=== PATIENT | male | born 1950 | race Caucasian/White ===

== ENCOUNTER 2019-01-01 09:47 | Outpatient (CLI) | payer OTHER ==
--- NOTE | 2019-01-01 10:27 | RAD ---
3 views of the left knee: 01/01/2019 COMPARISON: None HISTORY: Degenerative joint disease, knee arthritis with worsening pain FINDINGS: Moderate patellofemoral joint space narrowing with posterior patellar osteophyte formation noted. No significant knee joint effusion. Moderate/severe medial and lateral compartment narrowing with associated osteophyte formation. 2 calcific densities suggesting intra-articular loose bodies pr oject posterior to the distal left femur measuring up to 1.4 cm. No acute fracture or evidence of dislocation. IMPRESSION: Prominent multicompartment degenerative joint disease with findings suggesting intra-gunjan cular loose bodies.
== END 2019-01-01 09:48 | disposition home or self-care (01) ==
LOC: BICRAD 09:47
PROVIDERS: ATTEND Orthopaedic Surgery
DX: M17.12 Unilateral primary osteoarthritis, left knee (principal)

== ENCOUNTER 2023-06-01 21:25 | Emergency (ER) | payer MEDICARE, OTHER ==
[2023-06-01] MEDS ORDERED: Ipratropium/Albuterol 3 ML NEB ONE (21:58)
== END 2023-06-01 22:48 | disposition home or self-care (01) ==
LOC: ERS 21:25
DX: R18.8 Other ascites (principal); J18.9 Pneumonia, unspecified organism; E11.9 Type 2 diabetes mellitus without complications
CPT/HCPCS: 12001; 71045; 94640; J7620

== ENCOUNTER 2023-08-03 20:45 | Inpatient (IN) | payer MEDICARE, OTHER ==
[2023-08-03 21:11] LABS: #Eosinphils 0.2 thou/uL (0.0-0.7); #Monocytes 0.7 thou/uL (0.11-0.59); #Neutrophils 3.2 thou/uL (1.40-6.50); %Basophils 0.8 % (0.0-1.0); %Eosinophils 4.2 % (0.0-10.0); %Lymphocytes 15.2 % (21.0-51.0); %Monocytes 14.3 % (0.0-10.0); %Neutrophils 64.5 % (42.0-75.0); Hematocrit 30.5 % (42.0-52.0); Hemoglobin 10.8 g/dL (14.0-18.0); Mean Corpuscular HGB CONC 35.4 g/dL (32.0-36.0); Mean Corpuscular Hemoglobin 36.5 pg (27.0-31.0); Mean Platelet Volume 9.6 fL (7.4-10.4); Red Blood Cell (RBC) Count 2.96 mill/uL (4.70-6.10)
[2023-08-03 21:14] LABS: Platelet Count 54 10x3/uL (130-400)
[2023-08-03 22:01] LABS: Anisocytosis SLIGHT = 6-15 cells HPF (0-5); Burr Cells SLIGHT = 2-5 cells HPF (0-1); CellaVision Operator ID LAB.JMM; Macrocytosis SLIGHT = 6-15 cells HPF (0-5); Platelet Adequacy Comment Platelets Decreased; Polychromasia SLIGHT = 2-3 cells HPF (0-2)
[2023-08-03 22:30] LABS: ALT (SGPT) 21 U/L (8-55); AST (SGOT) 25 U/L (5-34); Alkaline Phosphatase 67 U/L (40-110); Anion Gap 15 mmol/L (10-20); BUN (Urea Nitrogen) 74 mg/dL (8.4-25.7); Bilirubin, Total 2.2 mg/dL (0.2-1.2); Calc. Creatinine Clearance 0 mL/min (70-130); Calcium 8.7 mg/dL (7.8-10.44); Carbon Dioxide 19 mmol/L (23-31); Chloride 99 mmol/L (98-107); Estimated GFR 25; Glucose 117 mg/dL (83-110); Potassium 5.4 mmol/L (3.5-5.1); Sodium 128 mmol/L (136-145)
[2023-08-03] MEDS ORDERED: Cefepime 1 GM VIAL ONE (23:04)
[2023-08-03] MEDS ORDERED: Sodium Chloride 0.9% 100 ML ONE (23:04)
[2023-08-03] MEDS ORDERED: Vancomycin (BATCH) 2 GM/500 ML BAG ONE (23:05)
[2023-08-04] MEDS ORDERED: Ondansetron PF 4 MG/2 ML Vial IVP PRN (00:55)
[2023-08-04] MEDS ORDERED: Acetaminophen 650 MG Suppository PR PRN (00:55)
[2023-08-04] MEDS ORDERED: Ondansetron ODT 4 MG TAB PO PRN (00:55)
[2023-08-04 01:11] LABS: Lactic Acid 2.5 mmol/L (0.5-2.2)
[2023-08-04] MEDS ORDERED: NOREPINEPHRINE 8 MG/250 ML-D5W 250 ML ONE (02:02)
[2023-08-04] MEDS: Midodrine HCl 5 MG TAB PO SCH ×2 (04:10→08:18)
[2023-08-04] MEDS: Albumin 25% 25 GM (100 mL) BOT IVPB SCH ×3 (05:25→14:14)
[2023-08-04 06:38] LABS: #Eosinphils 0.2 thou/uL (0.0-0.7); #Monocytes 0.7 thou/uL (0.11-0.59); #Neutrophils 3.7 thou/uL (1.40-6.50); %Basophils 0.6 % (0.0-1.0); %Eosinophils 3.7 % (0.0-10.0); %Lymphocytes 14.7 % (21.0-51.0); %Monocytes 12.2 % (0.0-10.0); %Neutrophils 67.9 % (42.0-75.0); Hematocrit 29.4 % (42.0-52.0); Hemoglobin 10.5 g/dL (14.0-18.0); Mean Corpuscular HGB CONC 35.7 g/dL (32.0-36.0); Mean Corpuscular Hemoglobin 36.7 pg (27.0-31.0); Mean Corpuscular Volume 102.8 fl (78.0-98.0); Mean Platelet Volume 9.2 fL (7.4-10.4); RBC Distribution Width 15.9 % (11.5-14.5); Red Blood Cell (RBC) Count 2.86 mill/uL (4.70-6.10); White Blood Cell (WBC) Count 5.4 10x3/uL (4.8-10.8)
[2023-08-04 06:53] LABS: ALT (SGPT) 22 U/L (8-55); AST (SGOT) 23 U/L (5-34); Albumin 3.2 g/dL (3.4-4.8); Alkaline Phosphatase 57 U/L (40-110); Anion Gap 12 mmol/L (10-20); BUN (Urea Nitrogen) 68 mg/dL (8.4-25.7); Bilirubin, Total 2.6 mg/dL (0.2-1.2); Calc. Creatinine Clearance 34 mL/min (70-130); Calcium 8.5 mg/dL (7.8-10.44); Carbon Dioxide 18 mmol/L (23-31); Chloride 103 mmol/L (98-107); Estimated GFR 31; Globulin 1.8 g/dL (2.4-3.5); Glucose 132 mg/dL (83-110); Potassium 4.9 mmol/L (3.5-5.1); Prothrombin Time 22.9 sec (12.0-14.7); Sodium 128 mmol/L (136-145)
[2023-08-04 06:54] LABS: PTT 40.3 sec (22.9-36.1)
[2023-08-04 07:04] LABS: Platelet Count 67 10x3/uL (130-400)
[2023-08-04] MEDS ORDERED: Furosemide 40 MG TAB PO SCH (07:30)
[2023-08-04] MEDS ORDERED: Spironolactone 100 MG TAB PO SCH (08:00)
[2023-08-04] MEDS: Folic Acid 1 MG TAB PO SCH (08:18)
[2023-08-04] MEDS: Thiamine 100 MG TAB PO SCH (08:18)
[2023-08-04] MEDS: Cyanocobalamin (Vitamin B-12) 1,000 MCG TAB PO SCH (08:18)
[2023-08-04] MEDS: Famotidine 20 MG TAB PO SCH (08:18)
[2023-08-04] MEDS: Famotidine/PF 20 mg/2ml Vial SLOW IVP SCH (08:19)
[2023-08-04] MEDS: Multivit, Chewable SF 1 TAB PO SCH (09:38)
[2023-08-04] MEDS: cefTRIAXone\\ROCEPHIN 2 GM in Sodium Chloride 0.9% 100 ML IVPB SCH (09:38)
[2023-08-05] MEDS: NOREPINEPHRINE 8 MG/250 ML-D5W 250 ML IVPB SCH (06:37)
[2023-08-05 08:35] LABS: #Eosinphils 0.2 thou/uL (0.0-0.7); #Monocytes 0.6 thou/uL (0.11-0.59); #Neutrophils 3.2 thou/uL (1.40-6.50); %Basophils 0.9 % (0.0-1.0); %Eosinophils 4.3 % (0.0-10.0); %Lymphocytes 14.5 % (21.0-51.0); %Monocytes 11.7 % (0.0-10.0); Hematocrit 30.5 % (42.0-52.0); Hemoglobin 10.6 g/dL (14.0-18.0); Mean Corpuscular HGB CONC 34.8 g/dL (32.0-36.0); Mean Corpuscular Hemoglobin 36.4 pg (27.0-31.0); Mean Corpuscular Volume 104.8 fl (78.0-98.0); Mean Platelet Volume 9.4 fL (7.4-10.4); Red Blood Cell (RBC) Count 2.91 mill/uL (4.70-6.10); White Blood Cell (WBC) Count 4.7 10x3/uL (4.8-10.8)
[2023-08-05 08:36] LABS: Platelet Count 54 10x3/uL (130-400)
[2023-08-05 08:56] LABS: ALT (SGPT) 25 U/L (8-55); AST (SGOT) 30 U/L (5-34); Albumin 3.2 g/dL (3.4-4.8); Alkaline Phosphatase 52 U/L (40-110); Anion Gap 11 mmol/L (10-20); BUN (Urea Nitrogen) 70 mg/dL (8.4-25.7); Bilirubin, Total 2.6 mg/dL (0.2-1.2); Calc. Creatinine Clearance 35 mL/min (70-130); Calcium 8.7 mg/dL (7.8-10.44); Carbon Dioxide 20 mmol/L (23-31); Chloride 105 mmol/L (98-107); Estimated GFR 32; Globulin 1.8 g/dL (2.4-3.5); Glucose 121 mg/dL (83-110); Potassium 4.5 mmol/L (3.5-5.1); Sodium 131 mmol/L (136-145)
[2023-08-05] MEDS: Lidocaine 1% (PF) 30 ML VIAL ONE (09:06)
[2023-08-07] MEDS: Acetaminophen 325 MG TAB PO PRN (06:19)
[2023-08-07 06:20] LABS: #Eosinphils 0.2 thou/uL (0.0-0.7); #Monocytes 0.6 thou/uL (0.11-0.59); #Neutrophils 3.7 thou/uL (1.40-6.50); %Basophils 0.4 % (0.0-1.0); %Eosinophils 4.6 % (0.0-10.0); %Lymphocytes 12.9 % (21.0-51.0); %Monocytes 11.1 % (0.0-10.0); %Neutrophils 70.6 % (42.0-75.0); Hematocrit 31.5 % (42.0-52.0); Hemoglobin 10.6 g/dL (14.0-18.0); Mean Corpuscular HGB CONC 33.7 g/dL (32.0-36.0); Mean Corpuscular Hemoglobin 35.8 pg (27.0-31.0); Mean Corpuscular Volume 106.4 fl (78.0-98.0); Mean Platelet Volume 9.3 fL (7.4-10.4); Red Blood Cell (RBC) Count 2.96 mill/uL (4.70-6.10); White Blood Cell (WBC) Count 5.2 10x3/uL (4.8-10.8)
[2023-08-07 06:27] LABS: Platelet Count 44 10x3/uL (130-400)
[2023-08-07 07:10] LABS: ALT (SGPT) 22 U/L (8-55); AST (SGOT) 25 U/L (5-34); Albumin 3.2 g/dL (3.4-4.8); Alkaline Phosphatase 57 U/L (40-110); Anion Gap 11 mmol/L (10-20); BUN (Urea Nitrogen) 59 mg/dL (8.4-25.7); Bilirubin, Total 2.5 mg/dL (0.2-1.2); Calc. Creatinine Clearance 47 mL/min (70-130); Calcium 8.8 mg/dL (7.8-10.44); Carbon Dioxide 17 mmol/L (23-31); Chloride 104 mmol/L (98-107); Estimated GFR 47; Globulin 1.9 g/dL (2.4-3.5); Glucose 97 mg/dL (83-110); Protein, Total 5.1 g/dL (5.8-8.1); Sodium 128 mmol/L (136-145)
[2023-08-08 04:34] LABS: ALT (SGPT) 21 U/L (8-55); AST (SGOT) 23 U/L (5-34); Albumin 2.9 g/dL (3.4-4.8); Alkaline Phosphatase 58 U/L (40-110); Anion Gap 10 mmol/L (10-20); BUN (Urea Nitrogen) 58 mg/dL (8.4-25.7); Bilirubin, Total 1.2 mg/dL (0.2-1.2); Calc. Creatinine Clearance 48 mL/min (70-130); Calcium 8.3 mg/dL (7.8-10.44); Carbon Dioxide 18 mmol/L (23-31); Chloride 106 mmol/L (98-107); Estimated GFR 47; Globulin 1.9 g/dL (2.4-3.5); Glucose 101 mg/dL (83-110); Potassium 3.9 mmol/L (3.5-5.1); Protein, Total 4.8 g/dL (5.8-8.1); Sodium 130 mmol/L (136-145)
[2023-08-09] MEDS: FLU VACC QS2023(65UP)/MF59C/PF 60 MCG/0.5 ML SYRINGE IM ONE (07:59)
[2023-08-09] MEDS ORDERED: Lidocaine 1% PF 5 ML VIAL ONE (15:12)
[2023-08-10 06:29] LABS: #Eosinphils 0.2 thou/uL (0.0-0.7); #Monocytes 0.4 thou/uL (0.11-0.59); #Neutrophils 1.9 thou/uL (1.40-6.50); %Basophils 0.3 % (0.0-1.0); %Eosinophils 5.9 % (0.0-10.0); %Lymphocytes 15.8 % (21.0-51.0); %Monocytes 13.9 % (0.0-10.0); %Neutrophils 63.4 % (42.0-75.0); Hematocrit 28.9 % (42.0-52.0); Hemoglobin 9.7 g/dL (14.0-18.0); Mean Corpuscular HGB CONC 33.6 g/dL (32.0-36.0); Mean Corpuscular Hemoglobin 35.7 pg (27.0-31.0); Mean Corpuscular Volume 106.3 fl (78.0-98.0); Mean Platelet Volume 9.7 fL (7.4-10.4); Red Blood Cell (RBC) Count 2.72 mill/uL (4.70-6.10)
[2023-08-10 06:33] LABS: Platelet Count 45 10x3/uL (130-400)
[2023-08-10 06:54] LABS: Anion Gap 11 mmol/L (10-20); BUN (Urea Nitrogen) 50 mg/dL (8.4-25.7); Calc. Creatinine Clearance 52 mL/min (70-130); Calcium 8.3 mg/dL (7.8-10.44); Carbon Dioxide 20 mmol/L (23-31); Chloride 107 mmol/L (98-107); Estimated GFR 60; Glucose 98 mg/dL (83-110); Potassium 3.7 mmol/L (3.5-5.1); Sodium 134 mmol/L (136-145)
[2023-08-11 11:52] VITALS: BP 132/70; TEMP 97.6
== END 2023-08-11 20:15 | DRG 314 ==
LOC: ERS 20:45 → CCU 08-04 02:10 → T4-A 08-05 22:02
PROVIDERS: ADMIT Student in an Organized Health Care Education/Training Program; ATTEND Emergency Medicine
PROC: 3E033XZ Introduction of Vasopressor into Peripheral Vein, Percutaneous Approach (ICD-10-PCS; 2023-08-05)
PROC: 0W9G3ZZ Drainage of Peritoneal Cavity, Percutaneous Approach (ICD-10-PCS; principal; 2023-08-09)
DX: I95.89 Other hypotension (principal); G93.41 Metabolic encephalopathy; K65.2 Spontaneous bacterial peritonitis; R57.8 Other shock; E87.1 Hypo-osmolality and hyponatremia; N18.4 Chronic kidney disease, stage 4 (severe); R18.8 Other ascites; N17.9 Acute kidney failure, unspecified; E87.20 Acidosis, unspecified; K74.60 Unspecified cirrhosis of liver; Z66 Do not resuscitate; E87.5 Hyperkalemia; D69.59 Other secondary thrombocytopenia; E88.09 Other disorders of plasma-protein metabolism, not elsewhere classified; D63.8 Anemia in other chronic diseases classified elsewhere; S81.802A Unspecified open wound, left lower leg, initial encounter; S81.801A Unspecified open wound, right lower leg, initial encounter; Z79.899 Other long term (current) drug therapy
CPT/HCPCS: 36415; 36556; 49083; 71045; 76770; 80048; 80053; 82140; 83605; 85025; 85610; 85730; 87040; 96361; 96365; 96366; 96367; 97139; J0692; J0696; J3370; J3490; P9047

== ENCOUNTER 2023-08-22 20:24 | Observation (INO) | payer MEDICARE ==
[2023-08-22] MEDS ORDERED: Ondansetron PF 4 MG/2 ML Vial ONE (21:39)
[2023-08-22] MEDS ORDERED: Pantoprazole 40 MG VIAL ONE (21:40)
[2023-08-22 21:45] LABS: #Eosinphils 0.1 thou/uL (0.0-0.7); #Monocytes 0.4 thou/uL (0.11-0.59); #Neutrophils 4.5 thou/uL (1.40-6.50); %Basophils 0.5 % (0.0-1.0); %Eosinophils 0.9 % (0.0-10.0); %Lymphocytes 9.8 % (21.0-51.0); %Monocytes 6.9 % (0.0-10.0); %Neutrophils 81.2 % (42.0-75.0); Mean Corpuscular HGB CONC 35.1 g/dL (32.0-36.0); Mean Corpuscular Hemoglobin 35.2 pg (27.0-31.0); Mean Corpuscular Volume 100.3 fl (78.0-98.0); Mean Platelet Volume 9.3 fL (7.4-10.4); RBC Distribution Width 15.2 % (11.5-14.5); Red Blood Cell (RBC) Count 3.69 mill/uL (4.70-6.10); White Blood Cell (WBC) Count 5.5 10x3/uL (4.8-10.8)
[2023-08-22 21:47] LABS: Platelet Count 56 10x3/uL (130-400)
[2023-08-22 21:57] LABS: INR-International Normal Ratio 1.8; PTT 36.1 sec (22.9-36.1); Prothrombin Time 20.9 sec (12.0-14.7)
[2023-08-22 21:58] LABS: CRP (Inflammatory) Less than 0.50 mg/dL (= or < 0.5); Lipase 35 U/L (8-78); Magnesium 2.1 mg/dL (1.6-2.6)
[2023-08-22 22:00] LABS: ALT (SGPT) 29 U/L (8-55); AST (SGOT) 37 U/L (5-34); Albumin 3.5 g/dL (3.4-4.8); Alkaline Phosphatase 82 U/L (40-110); Anion Gap 15 mmol/L (10-20); BUN (Urea Nitrogen) 44 mg/dL (8.4-25.7); Bilirubin, Total 4.4 mg/dL (0.2-1.2); CK (CPK) 34 U/L (30-200); Calc. Creatinine Clearance 0 mL/min (70-130); Calcium 9.2 mg/dL (7.8-10.44); Carbon Dioxide 18 mmol/L (23-31); Chloride 101 mmol/L (98-107); Estimated GFR 49; Globulin 2.6 g/dL (2.4-3.5); Glucose 118 mg/dL (83-110); Potassium 5.7 mmol/L (3.5-5.1); Protein, Total 6.1 g/dL (5.8-8.1); Sodium 128 mmol/L (136-145)
[2023-08-22 22:41] LABS: Bacteria/HPF None Seen HPF (None Seen); Bilirubin Negative (Negative); Blood, Urine Negative (Negative); CAUTI Indications for Culture Pelvic or flank pain; Clarity Clear (Clear); Glucose, Urine (Dipstick) Normal (Negative); Ketone, Urine Negative (Negative); Leukocyte Negative Leu/uL (Negative); Nitrite Negative (Negative); Protein, Urine (Dipstick) 10 mg/dL (Neg-Trace); RBC/HPF 0-3 HPF (0-3); Squamous Epithelial None Seen HPF (0-3); Urobilinogen Normal mg/dL (Less than 2); WBC/HPF 0-3 HPF (0-3); pH, Urine 5.5 (5.0-9.0)
[2023-08-22 22:49] LABS: Urine Culture Reflex No No
[2023-08-23] MEDS ORDERED: Ondansetron PF 4 MG/2 ML Vial IVP PRN (00:15)
[2023-08-23] MEDS ORDERED: CALCIUM GLUC 1 GM (50 ML) BAG ONE (00:24)
[2023-08-23] MEDS ORDERED: Metoclopramide HCl 10 MG (2 mL) VIAL ONE (00:24)
[2023-08-23] MEDS ORDERED: Sodium Bicarb 50 mEq/50 ML VIAL ONE (00:28)
[2023-08-23] MEDS ORDERED: Sodium Polystyrene Sulfonate 15 GM (60 mL) BOT ONE (00:29)
[2023-08-23 01:49] VITALS: BMI 21.9
[2023-08-23 05:07] LABS: #Monocytes 0.5 thou/uL (0.11-0.59); #Neutrophils 3.8 thou/uL (1.40-6.50); %Basophils 0.6 % (0.0-1.0); %Eosinophils 0.4 % (0.0-10.0); %Lymphocytes 12.4 % (21.0-51.0); %Monocytes 9.2 % (0.0-10.0); %Neutrophils 76.8 % (42.0-75.0); Hematocrit 32.8 % (42.0-52.0); Hemoglobin 11.4 g/dL (14.0-18.0); Mean Corpuscular HGB CONC 34.8 g/dL (32.0-36.0); Mean Corpuscular Hemoglobin 35.3 pg (27.0-31.0); Mean Corpuscular Volume 101.5 fl (78.0-98.0); Mean Platelet Volume 9.4 fL (7.4-10.4); RBC Distribution Width 15.2 % (11.5-14.5); Red Blood Cell (RBC) Count 3.23 mill/uL (4.70-6.10)
[2023-08-23 05:14] LABS: Platelet Count 51 10x3/uL (130-400)
[2023-08-23 05:18] LABS: Anion Gap 16 mmol/L (10-20); BUN (Urea Nitrogen) 42 mg/dL (8.4-25.7); Calc. Creatinine Clearance 48 mL/min (70-130); Calcium 8.6 mg/dL (7.8-10.44); Carbon Dioxide 18 mmol/L (23-31); Chloride 103 mmol/L (98-107); Estimated GFR 49; Glucose 115 mg/dL (83-110); Potassium 4.4 mmol/L (3.5-5.1); Sodium 133 mmol/L (136-145)
[2023-08-23] MEDS: Famotidine/PF 20 mg/2ml Vial SLOW IVP SCH (08:18)
[2023-08-23] MEDS: Multivit, Chewable SF 1 TAB PO SCH (09:18)
[2023-08-23] MEDS: Cyanocobalamin (Vitamin B-12) 1,000 MCG TAB PO SCH (09:19)
[2023-08-23] MEDS: Thiamine 100 MG TAB PO SCH (09:19)
[2023-08-23] MEDS: Folic Acid 1 MG TAB PO SCH (09:19)
[2023-08-23] MEDS: Ascorbic Acid 500 mg Chewable Tablet PO SCH (09:19)
[2023-08-24] MEDS: Famotidine 20 MG TAB PO SCH (08:43)
[2023-08-24 13:11] LABS: RBC Count-Automated (BF) 1214 /cu.mm; WBC/Nucleated-Auto (BF) 134 /cu.mm
[2023-08-24 13:18] LABS: Body Fluid Source Peritoneal Fluid; Tube # EDTA
[2023-08-24 13:20] LABS: BF Color Yellow; Clarity Hazy (Clear)
[2023-08-24 13:58] LABS: BF Segmented Neutrophils 47 %; Cell Count Non Hematic 23 %; Lymphocytes 30 %
[2023-08-24 16:06] VITALS: BP 100/53; TEMP 97.9
== END 2023-08-24 19:28 ==
LOC: ERS 20:24 → T4-B 08-23 00:18
PROVIDERS: ADMIT Hospitalist; ATTEND Internal Medicine
PROC: 0W9G3ZZ Drainage of Peritoneal Cavity, Percutaneous Approach (ICD-10-PCS; principal; 2023-08-22)
DX: K74.60 Unspecified cirrhosis of liver (principal); R18.8 Other ascites; N18.4 Chronic kidney disease, stage 4 (severe); R11.2 Nausea with vomiting, unspecified; Z91.048 Other nonmedicinal substance allergy status; Z53.9 Procedure and treatment not carried out, unspecified reason; Z20.822 Contact with and (suspected) exposure to COVID-19
CPT/HCPCS: 49083; 71045; 74176; 80048; 80053; 81001; 82550; 83605; 83690; 83735; 85025 ×2; 85610; 85730; 86140; 87070; 87077; 87205; 89051; 93005; 96365; 96375 ×2; 99285; G0378 ×3; J0613; 36415; 85060; 87635; C9113; J2405; J2765; S0028

== ENCOUNTER 2023-11-07 21:38 | Inpatient (IN) | payer MEDICARE ==
[~2023-11-07 21:38] MED LIST: Iopamidol 370 76% 100 ML VIAL ONE
[2023-11-07] MEDS ORDERED: cefTRIAXone (ROCEPHIN) 2 GM VIAL ONE (21:47)
[2023-11-07] MEDS ORDERED: Sodium Chloride 0.9% 100 ML ONE (21:47)
[2023-11-07] MEDS ORDERED: Morphine 4 MG/ML VIAL ONE (21:47)
[2023-11-07] MEDS ORDERED: Pantoprazole 40 MG VIAL ONE ×2 (21:47→22:31)
[2023-11-07] MEDS ORDERED: Pantoprazole 80 MG, Admixture Fee 1 EACH in Sodium Chloride 0.9% 100 ML IVPB SCH (22:15)
[2023-11-07] MEDS ORDERED: Octreotide Acetate 1,250 MCG in Sodium Chloride 0.9% 250 ML 250 ML IVPB SCH (22:15)
[2023-11-07 22:21] LABS: #Basophils Less than 0.03 10x3/uL (0.0-0.2); %Basophils 0.2 % (0.0-1.0); %Eosinophils 1.1 % (0.0-10.0); %Lymphocytes 6.7 % (21.0-51.0); %Monocytes 10.6 % (0.0-10.0); %Neutrophils 80.4 % (42.0-75.0); Hematocrit 37.5 % (42.0-52.0); Hemoglobin 13.7 g/dL (14.0-18.0); Mean Corpuscular HGB CONC 36.5 g/dL (32.0-36.0); Mean Corpuscular Volume 95.9 fL (78.0-98.0); Mean Platelet Volume 8.7 fL (7.4-10.4); Platelet Count 93 10x3/uL (130-400); Red Blood Cell (RBC) Count 3.91 mill/uL (4.70-6.10)
[2023-11-07 22:28] LABS: INR-International Normal Ratio 2.6; Prothrombin Time 28.2 sec (12.0-14.7)
[2023-11-07 22:29] LABS: PTT 43.9 sec (22.9-36.1)
[2023-11-07 22:30] LABS: Troponin I 0.046 ng/mL (< 0.028)
[2023-11-07 22:31] LABS: ALT (SGPT) 24 U/L (8-55); AST (SGOT) 23 U/L (5-34); AST (SGOT) 25 U/L (5-34); Albumin 2.9 g/dL (3.4-4.8); Alkaline Phosphatase 86 U/L (40-110); Alkaline Phosphatase 87 U/L (40-110); Anion Gap 18 mmol/L (10-20); BUN (Urea Nitrogen) 57 mg/dL (8.4-25.7); Bilirubin, Total 5.5 mg/dL (0.2-1.2); Calc. Creatinine Clearance 0 mL/min (70-130); Calcium 8.6 mg/dL (7.8-10.44); Carbon Dioxide 22 mmol/L (23-31); Chloride 91 mmol/L (98-107); Estimated GFR 30; Globulin 2.4 g/dL (2.4-3.5); Glucose 120 mg/dL (83-110); Lipase 29 U/L (8-78); Potassium 4.9 mmol/L (3.5-5.1); Protein, Total 5.3 g/dL (5.8-8.1); Sodium 126 mmol/L (136-145)
[2023-11-07 22:36] LABS: Anisocytosis SLIGHT = 6-15 cells HPF (0-5); Burr Cells SLIGHT = 2-5 cells HPF (0-1); Platelet Adequacy Comment Platelets Decreased; Polychromasia SLIGHT = 2-3 cells HPF (0-2)
[2023-11-07] MEDS ORDERED: Albumin 25% 100 ML ONE (23:52)
[2023-11-08] MEDS ORDERED: Pantoprazole 80 MG in Sodium Chloride 0.9% 100 ML IVPB SCH (01:00)
[2023-11-08 04:33] LABS: #Basophils 0.01 10x3/uL (0.0-0.2); #Eosinphils 0.06 10x3/uL (0.0-0.7); #Monocytes 0.81 10x3/uL (0.11-0.59); #Neutrophils 5.94 10x3/uL (1.40-6.50); %Basophils 0.1 % (0.0-1.0); %Eosinophils 0.8 % (0.0-10.0); %Monocytes 10.8 % (0.0-10.0); %Neutrophils 79.5 % (42.0-75.0); Hematocrit 28.9 % (42.0-52.0); Hemoglobin 10.8 g/dL (14.0-18.0); Mean Corpuscular HGB CONC 37.4 g/dL (32.0-36.0); Mean Corpuscular Volume 93.5 fL (78.0-98.0); Mean Platelet Volume 9.4 fL (7.4-10.4); Platelet Adequacy Comment Platelets Decreased; Platelet Count 53 10x3/uL (130-400); RBC Distribution Width 17.8 % (11.5-14.5); Red Blood Cell (RBC) Count 3.09 mill/uL (4.70-6.10); White Blood Cell (WBC) Count 7.48 10x3/uL (4.8-10.8)
[2023-11-08] MEDS ORDERED: NOREPINEPHRINE 8 MG/250 ML-D5W 250 ML IVPB SCH (04:45)
[2023-11-08 04:47] VITALS: BMI 20.2
[2023-11-08] MEDS: Phytonadione 10 MG in Sodium Chloride 0.9% 50 ML IVPB SCH (05:55)
[2023-11-08 06:26] LABS: Lactic Acid 1.5 mmol/L (0.5-2.2)
[2023-11-08 06:29] LABS: #Basophils Less than 0.03 10x3/uL (0.0-0.2); %Basophils 0.3 % (0.0-1.0); %Eosinophils 1.5 % (0.0-10.0); %Lymphocytes 8.5 % (21.0-51.0); %Monocytes 12.9 % (0.0-10.0); %Neutrophils 76.2 % (42.0-75.0); Hematocrit 31.9 % (42.0-52.0); Mean Corpuscular HGB CONC 34.5 g/dL (32.0-36.0); Mean Corpuscular Hemoglobin 35.3 pg (27.0-31.0); Mean Corpuscular Volume 102.2 fL (78.0-98.0); Mean Platelet Volume 9.2 fL (7.4-10.4); Platelet Count 53 10x3/uL (130-400); RBC Distribution Width 18.6 % (11.5-14.5); Red Blood Cell (RBC) Count 3.12 mill/uL (4.70-6.10)
[2023-11-08 06:31] LABS: ALT (SGPT) 17 U/L (8-55); AST (SGOT) 17 U/L (5-34); Albumin 2.9 g/dL (3.4-4.8); Alkaline Phosphatase 62 U/L (40-110); Anion Gap 15 mmol/L (10-20); BUN (Urea Nitrogen) 55 mg/dL (8.4-25.7); Bilirubin, Total 4.8 mg/dL (0.2-1.2); Calc. Creatinine Clearance 32 mL/min (70-130); Calcium 8.3 mg/dL (7.8-10.44); Carbon Dioxide 17 mmol/L (23-31); Chloride 95 mmol/L (98-107); Estimated GFR 34; Globulin 1.8 g/dL (2.4-3.5); Glucose 105 mg/dL (83-110); Potassium 4.8 mmol/L (3.5-5.1); Protein, Total 4.7 g/dL (5.8-8.1); Sodium 122 mmol/L (136-145)
[2023-11-08] MEDS: Phytonadione 10 MG/ML AMP SLOW IVP SCH (07:13)
[2023-11-08] MEDS: Pantoprazole 80 MG, Admixture Fee 1 EACH in Sodium Chloride 0.9% 100 ML IVPB SCH (08:36)
[2023-11-08] MEDS ORDERED: PROPOFOL 20 ML ONE (10:26)
[2023-11-08] MEDS ORDERED: fentaNYL 50 mcg/mL 1 mL Vial ONE (10:30)
[2023-11-08] MEDS ORDERED: Ketamine In 0.9 % NaCl 50 MG/5 ML SYRINGE ONE (10:48)
[2023-11-08] MEDS ORDERED: PHENYLEPHRINE-NS 100 MCG/ML 10 ML SYRINGE ONE (10:55)
[2023-11-08] MEDS ORDERED: SUCCINYLCHOLINE/SOD CL,ISO/PF 200 MG/10 ML SYRINGE FS ONE (10:55)
[2023-11-08] MEDS: Lactulose 20 GM (30 mL) UDCUP PO SCH ×2 (12:51→20:24)
[2023-11-08] MEDS: Albumin 25% 25 GM (100 mL) BOT IVPB SCH ×2 (12:51→16:48)
[2023-11-08 13:10] LABS: Hematocrit 35.6 % (42.0-52.0); Hemoglobin 12.2 g/dL (14.0-18.0)
[2023-11-08] MEDS: Midodrine HCl 5 MG TAB PO SCH (14:06)
[2023-11-08] MEDS ORDERED: Lidocaine 1% PF 5 ML VIAL ONE (14:44)
[2023-11-08] MEDS ORDERED: Sodium Bicarbonate 2.5 MEQ/5 ML SDV ONE (14:44)
[2023-11-08] MEDS: Vancomycin (BATCH) 1.5 GM in Premix 1 BAG IVPB SCH (16:09)
[2023-11-08 17:06] LABS: RBC Count-Automated (BF) 3245 /cu.mm; WBC/Nucleated-Auto (BF) 497 /cu.mm
[2023-11-08 17:16] LABS: BF Color Yellow; Body Fluid Source Ascites Body Fluid; Clarity Clear (Clear); Tube # EDTA
[2023-11-08 17:42] LABS: BF Segmented Neutrophils 60 %; Cell Count Non Hematic 31 %; Lymphocytes 9 %
[2023-11-08 19:50] LABS: Hematocrit 29.8 % (42.0-52.0); Hemoglobin 10.4 g/dL (14.0-18.0)
[2023-11-08] MEDS: cefTRIAXone\\ROCEPHIN 2 GM in Sodium Chloride 0.9% 100 ML IVPB SCH (22:10)
[2023-11-09 00:42] LABS: Bacteria/HPF None Seen HPF (None Seen); Bilirubin Negative (Negative); Blood, Urine 3+ (Negative); Clarity Extra Turbid (Clear); Glucose, Urine (Dipstick) Normal (Negative); Ketone, Urine Negative (Negative); Leukocyte 500 Leu/uL (Negative); Nitrite Negative (Negative); Protein, Urine (Dipstick) 100 mg/dL (Neg-Trace); RBC/HPF Greater than 50 HPF (0-3); Specific Gravity, Urine 1.024 (1.002-1.036); Squamous Epithelial None Seen HPF (0-3); Urobilinogen Normal mg/dL (Less than 2); WBC/HPF Greater than 50 HPF (0-3); pH, Urine 5.5 (5.0-9.0)
[2023-11-09 01:11] LABS: Creatinine, Urine 61.25 mg/dL (63-166)
[2023-11-09] MEDS: Octreotide Acetate 1,250 MCG in Sodium Chloride 0.9% 250 ML 250 ML IVPB SCH (04:22)
[2023-11-09 06:54] LABS: #Basophils Less than 0.03 10x3/uL (0.0-0.2); %Basophils 0.3 % (0.0-1.0); %Eosinophils 2.9 % (0.0-10.0); %Lymphocytes 11.9 % (21.0-51.0); %Neutrophils 74.3 % (42.0-75.0); Hematocrit 26.5 % (42.0-52.0); Hemoglobin 9.2 g/dL (14.0-18.0); Mean Corpuscular HGB CONC 34.7 g/dL (32.0-36.0); Mean Corpuscular Hemoglobin 36.1 pg (27.0-31.0); Mean Corpuscular Volume 103.9 fL (78.0-98.0); Mean Platelet Volume 9.3 fL (7.4-10.4); Platelet Count 41 10x3/uL (130-400); RBC Distribution Width 18.4 % (11.5-14.5); Red Blood Cell (RBC) Count 2.55 mill/uL (4.70-6.10)
[2023-11-09 07:03] LABS: Anion Gap 19 mmol/L (10-20); BUN (Urea Nitrogen) 59 mg/dL (8.4-25.7); Calc. Creatinine Clearance 30 mL/min (70-130); Calcium 8.8 mg/dL (7.8-10.44); Carbon Dioxide 18 mmol/L (23-31); Chloride 94 mmol/L (98-107); Estimated GFR 30; Glucose 118 mg/dL (83-110); Potassium 4.5 mmol/L (3.5-5.1); Sodium 126 mmol/L (136-145)
[2023-11-09 07:08] LABS: Vancomycin, Random 13.3 ug/mL (See Comment)
[2023-11-09] MEDS: Albumin 25% 25 GM (100 mL) BOT IVPB SCH (11:13)
[2023-11-09 11:22] LABS: Vancomycin, Random 12.5 ug/mL (See Comment)
[2023-11-09] MEDS ORDERED: Sodium Chloride 0.9% (PF) 10 ML VIAL FS PRN (12:00)
[2023-11-09] MEDS: CEFAZOLIN 2 GM in Sodium Chloride 0.9% 100 ML IVPB SCH (12:37)
[2023-11-09] MEDS ORDERED: Vancomycin 1 GM in Premix 1 BAG IVPB SCH (16:00)
[2023-11-09] MEDS: Pantoprazole 40 MG VIAL IVP SCH (20:39)
[2023-11-10 06:11] LABS: #Basophils Less than 0.03 10x3/uL (0.0-0.2); %Basophils 0.7 % (0.0-1.0); %Eosinophils 3.4 % (0.0-10.0); %Lymphocytes 9.4 % (21.0-51.0); %Monocytes 11.1 % (0.0-10.0); %Neutrophils 75.1 % (42.0-75.0); Hematocrit 24.2 % (42.0-52.0); Hemoglobin 8.4 g/dL (14.0-18.0); Mean Corpuscular HGB CONC 34.7 g/dL (32.0-36.0); Mean Corpuscular Volume 100.8 fL (78.0-98.0); Mean Platelet Volume 10.6 fL (7.4-10.4); Platelet Count 36 10x3/uL (130-400); RBC Distribution Width 18.4 % (11.5-14.5)
[2023-11-10 09:42] LABS: Anion Gap 14 mmol/L (10-20); BUN (Urea Nitrogen) 58 mg/dL (8.4-25.7); Calc. Creatinine Clearance 27 mL/min (70-130); Calcium 8.6 mg/dL (7.8-10.44); Carbon Dioxide 20 mmol/L (23-31); Chloride 96 mmol/L (98-107); Estimated GFR 26; Glucose 118 mg/dL (83-110); Potassium 4.1 mmol/L (3.5-5.1); Sodium 126 mmol/L (136-145)
[2023-11-10] MEDS: Albumin 25% 25 GM (100 mL) BOT IVPB SCH (11:57)
[2023-11-10 14:16] VITALS: BMI 20.6
[2023-11-10] MEDS: Ascorbic Acid 500 mg Chewable Tablet PO SCH (20:04)
[2023-11-10] MEDS: Sodium Chloride 1 GM TAB PO SCH (20:04)
[2023-11-10] MEDS: Midodrine HCl 5 MG TAB PO SCH (20:04)
[2023-11-11] MEDS: Levothyroxine Sodium 25 MCG TAB PO SCH (05:48)
[2023-11-11 06:37] LABS: #Basophils Less than 0.03 10x3/uL (0.0-0.2); %Basophils 0.4 % (0.0-1.0); %Eosinophils 3.4 % (0.0-10.0); %Lymphocytes 9.7 % (21.0-51.0); %Monocytes 10.5 % (0.0-10.0); %Neutrophils 75.2 % (42.0-75.0); Hematocrit 23.1 % (42.0-52.0); Hemoglobin 7.9 g/dL (14.0-18.0); Mean Corpuscular HGB CONC 34.2 g/dL (32.0-36.0); Mean Corpuscular Hemoglobin 34.5 pg (27.0-31.0); Mean Corpuscular Volume 100.9 fL (78.0-98.0); Mean Platelet Volume 9.3 fL (7.4-10.4); Platelet Count 38 10x3/uL (130-400); RBC Distribution Width 18.2 % (11.5-14.5); Red Blood Cell (RBC) Count 2.29 mill/uL (4.70-6.10)
[2023-11-11 06:53] LABS: Anion Gap 16 mmol/L (10-20); BUN (Urea Nitrogen) 54 mg/dL (8.4-25.7); Calc. Creatinine Clearance 29 mL/min (70-130); Calcium 8.9 mg/dL (7.8-10.44); Carbon Dioxide 19 mmol/L (23-31); Chloride 98 mmol/L (98-107); Estimated GFR 29; Glucose 116 mg/dL (83-110); Potassium 3.5 mmol/L (3.5-5.1); Sodium 129 mmol/L (136-145)
[2023-11-11] MEDS: Thiamine 100 MG TAB PO SCH (08:26)
[2023-11-11] MEDS: Folic Acid 1 MG TAB PO SCH (08:26)
[2023-11-11] MEDS: Multivit, Chewable SF 1 TAB PO SCH (08:26)
[2023-11-11] MEDS ORDERED: Artificial Tear Sol 15 ML BOT EA EYE PRN (10:12)
[2023-11-11] MEDS: Furosemide 40 MG (4 mL) VIAL SLOW IVP SCH (10:56)
[2023-11-11] MEDS: Albumin 25% 25 GM (100 mL) BOT IVPB SCH (11:58)
[2023-11-11] MEDS ORDERED: Lidocaine 1% PF 5 ML VIAL ONE (13:08)
[2023-11-11] MEDS ORDERED: Sodium Bicarbonate 2.5 MEQ/5 ML SDV ONE (13:08)
[2023-11-12 04:09] LABS: #Basophils Less than 0.03 10x3/uL (0.0-0.2); %Basophils 0.5 % (0.0-1.0); %Eosinophils 2.4 % (0.0-10.0); %Monocytes 11.5 % (0.0-10.0); %Neutrophils 74.6 % (42.0-75.0); Hematocrit 24.3 % (42.0-52.0); Mean Corpuscular HGB CONC 32.9 g/dL (32.0-36.0); Mean Corpuscular Hemoglobin 34.6 pg (27.0-31.0); Mean Corpuscular Volume 105.2 fL (78.0-98.0); Mean Platelet Volume 9.8 fL (7.4-10.4); Platelet Count 32 10x3/uL (130-400); RBC Distribution Width 18.2 % (11.5-14.5); Red Blood Cell (RBC) Count 2.31 mill/uL (4.70-6.10)
[2023-11-12 04:32] LABS: ALT (SGPT) Less than 5 U/L (8-55); AST (SGOT) 11 U/L (5-34); Albumin 4.4 g/dL (3.4-4.8); Alkaline Phosphatase 30 U/L (40-110); Anion Gap 14 mmol/L (10-20); BUN (Urea Nitrogen) 49 mg/dL (8.4-25.7); Bilirubin, Total 1.9 mg/dL (0.2-1.2); Calc. Creatinine Clearance 34 mL/min (70-130); Calcium 8.9 mg/dL (7.8-10.44); Carbon Dioxide 20 mmol/L (23-31); Chloride 102 mmol/L (98-107); Estimated GFR 35; Globulin 0.9 g/dL (2.4-3.5); Glucose 105 mg/dL (83-110); Potassium 3.3 mmol/L (3.5-5.1); Protein, Total 5.3 g/dL (5.8-8.1); Sodium 133 mmol/L (136-145)
[2023-11-12] MEDS: Potassium Chloride 20 MEQ in Premix 1 BAG IVPB SCH (06:20)
[2023-11-12] MEDS: Albumin 25% 25 GM (100 mL) BOT IVPB SCH (12:56)
[2023-11-13 06:50] LABS: Anion Gap 16 mmol/L (10-20); BUN (Urea Nitrogen) 47 mg/dL (8.4-25.7); Calc. Creatinine Clearance 43 mL/min (70-130); Carbon Dioxide 21 mmol/L (23-31); Chloride 104 mmol/L (98-107); Estimated GFR 48; Glucose 111 mg/dL (83-110); Potassium 3.8 mmol/L (3.5-5.1); Sodium 137 mmol/L (136-145)
[2023-11-13 06:51] LABS: Hematocrit 23.1 % (42.0-52.0); Hemoglobin 7.7 g/dL (14.0-18.0); Mean Corpuscular HGB CONC 33.3 g/dL (32.0-36.0); Mean Corpuscular Hemoglobin 34.8 pg (27.0-31.0); Mean Corpuscular Volume 104.5 fL (78.0-98.0); Mean Platelet Volume 9.6 fL (7.4-10.4); Platelet Count 27 10x3/uL (130-400); RBC Distribution Width 18.3 % (11.5-14.5); Red Blood Cell (RBC) Count 2.21 mill/uL (4.70-6.10)
[2023-11-13 08:19] LABS: Anisocytosis MODERATE=16-30 cells HPF (0-5); Burr Cells SLIGHT = 2-5 cells HPF (0-1); Eosinophils 5 % (0-10); Hypochromia SLIGHT = 6-15 cells HPF (0-5); Lymphocytes 16 % (21-51); Macrocytosis SLIGHT = 6-15 cells HPF (0-5); Monocytes 7 % (0-10); Neutrophil 73 % (42-75); Ovalocytes SLIGHT = 2-5 cells HPF (0-1); Platelet Adequacy Comment Platelets Decreased; Polychromasia SLIGHT = 2-3 cells HPF (0-2); Smudge Cells 0.9 %
[2023-11-13] MEDS: Pantoprazole DR 40 MG TAB PO SCH (09:18)
[2023-11-13] MEDS: Albumin 25% 25 GM (100 mL) BOT IVPB SCH (12:26)
[2023-11-14 04:10] LABS: Hematocrit 22.9 % (42.0-52.0); Hemoglobin 7.7 g/dL (14.0-18.0); Mean Corpuscular HGB CONC 33.6 g/dL (32.0-36.0); Mean Corpuscular Hemoglobin 34.5 pg (27.0-31.0); Mean Corpuscular Volume 102.7 fL (78.0-98.0); Mean Platelet Volume 9.8 fL (7.4-10.4); Platelet Count 34 10x3/uL (130-400); RBC Distribution Width 18.2 % (11.5-14.5); Red Blood Cell (RBC) Count 2.23 mill/uL (4.70-6.10)
[2023-11-14 04:18] LABS: Anion Gap 17 mmol/L (10-20); BUN (Urea Nitrogen) 43 mg/dL (8.4-25.7); Calc. Creatinine Clearance 44 mL/min (70-130); Calcium 9.5 mg/dL (7.8-10.44); Carbon Dioxide 21 mmol/L (23-31); Chloride 103 mmol/L (98-107); Estimated GFR 49; Glucose 115 mg/dL (83-110); Potassium 3.8 mmol/L (3.5-5.1); Sodium 137 mmol/L (136-145)
[2023-11-14 04:34] LABS: Anisocytosis SLIGHT = 6-15 cells HPF (0-5); Band 18 % (5-11); Eosinophils 3 % (0-10); Hypochromia SLIGHT = 6-15 cells HPF (0-5); Lymphocytes 5 % (21-51); Macrocytosis SLIGHT = 6-15 cells HPF (0-5); Monocytes 7 % (0-10); Neutrophil 67 % (42-75); Platelet Adequacy Comment Platelets Decreased
[2023-11-14] MEDS: traMADol HCl 50 MG TAB PO SCH (12:39)
[2023-11-14] MEDS ORDERED: Ipratropium/Albuterol 3 ML NEB NEB PRN (13:26)
[2023-11-14] MEDS: Furosemide 20 MG TAB PO SCH (14:18)
[2023-11-14] MEDS: Spironolactone 25 MG TAB PO SCH ×2 (14:18→18:08)
[2023-11-15 05:57] LABS: Hematocrit 24.4 % (42.0-52.0); Hemoglobin 8.2 g/dL (14.0-18.0); Mean Corpuscular HGB CONC 33.6 g/dL (32.0-36.0); Mean Corpuscular Hemoglobin 35.5 pg (27.0-31.0); Mean Corpuscular Volume 105.6 fL (78.0-98.0); Mean Platelet Volume 9.8 fL (7.4-10.4); Platelet Count 27 10x3/uL (130-400); RBC Distribution Width 18.6 % (11.5-14.5); Red Blood Cell (RBC) Count 2.31 mill/uL (4.70-6.10)
[2023-11-15 06:10] LABS: Anion Gap 14 mmol/L (10-20); BUN (Urea Nitrogen) 40 mg/dL (8.4-25.7); Calc. Creatinine Clearance 54 mL/min (70-130); Calcium 9.4 mg/dL (7.8-10.44); Carbon Dioxide 22 mmol/L (23-31); Chloride 105 mmol/L (98-107); Estimated GFR 62; Glucose 94 mg/dL (83-110); Potassium 3.5 mmol/L (3.5-5.1); Sodium 137 mmol/L (136-145)
[2023-11-15 06:45] LABS: Anisocytosis MODERATE=16-30 cells HPF (0-5); Band 3 % (5-11); Burr Cells SLIGHT = 2-5 cells HPF (0-1); Eosinophils 1 % (0-10); Large Platelets 3.8 % (0-5); Lymphocytes 10 % (21-51); Macrocytosis MODERATE=16-30 cells HPF (0-5); Monocytes 9 % (0-10); Neutrophil 78 % (42-75); Ovalocytes SLIGHT = 2-5 cells HPF (0-1); Platelet Adequacy Comment Significant Decrease; Polychromasia SLIGHT = 2-3 cells HPF (0-2); Smudge Cells 7.7 %
[2023-11-15] MEDS ORDERED: Sodium Bicarbonate 2.5 MEQ/5 ML SDV ONE ×2 (11:29→12:33)
[2023-11-15] MEDS ORDERED: Lidocaine 1% PF 5 ML VIAL ONE ×2 (11:29→12:33)
[2023-11-15] MEDS: CEFAZOLIN 2 GM in Sodium Chloride 0.9% 100 ML IVPB SCH (21:03)
[2023-11-16] MEDS: Ondansetron PF 4 MG/2 ML Vial IVP PRN (09:33)
[2023-11-16] MEDS: traMADol HCl 50 MG TAB PO PRN (22:03)
[2023-11-17 07:21] VITALS: BP 106/65; TEMP 98.3
== END 2023-11-17 17:57 | DRG 871 ==
LOC: ERS 21:38 → CCU 11-08 01:21 → T4-A 11-09 19:48 → IMCU/EMU 11-11 14:42 → MSONC 11-13 14:22
PROVIDERS: ADMIT Internal Medicine; ATTEND Internal Medicine
PROC: 30233J1 Transfusion of Nonautologous Serum Albumin into Peripheral Vein, Percutaneous Approach (ICD-10-PCS; 2023-11-07)
PROC: 0W9G3ZZ Drainage of Peritoneal Cavity, Percutaneous Approach (ICD-10-PCS; principal; 2023-11-08)
PROC: 0DJ08ZZ Inspection of Upper Intestinal Tract, Via Natural or Artificial Opening Endoscopic (ICD-10-PCS; 2023-11-08)
PROC: 0W9G3ZZ Drainage of Peritoneal Cavity, Percutaneous Approach (ICD-10-PCS; 2023-11-11)
PROC: 0W9G3ZZ Drainage of Peritoneal Cavity, Percutaneous Approach (ICD-10-PCS; 2023-11-15)
PROC: 02HV33Z Insertion of Infusion Device into Superior Vena Cava, Percutaneous Approach (ICD-10-PCS; 2023-11-15)
PROC: B5181ZA Fluoroscopy of Superior Vena Cava using Low Osmolar Contrast, Guidance (ICD-10-PCS; 2023-11-15)
PROC: 3E04329 Introduction of Other Anti-infective into Central Vein, Percutaneous Approach (ICD-10-PCS; 2023-11-15)
PROC: B548ZZA Ultrasonography of Superior Vena Cava, Guidance (ICD-10-PCS; 2023-11-15)
DX: A41.01 Sepsis due to Methicillin susceptible Staphylococcus aureus (principal); E43 Unspecified severe protein-calorie malnutrition; I85.01 Esophageal varices with bleeding; K22.11 Ulcer of esophagus with bleeding; K29.81 Duodenitis with bleeding; J96.01 Acute respiratory failure with hypoxia; K76.7 Hepatorenal syndrome; N17.9 Acute kidney failure, unspecified; R18.8 Other ascites; I82.890 Acute embolism and thrombosis of other specified veins; E87.1 Hypo-osmolality and hyponatremia; K76.6 Portal hypertension; D62 Acute posthemorrhagic anemia; D61.818 Other pancytopenia; Z68.1 Body mass index [BMI] 19.9 or less, adult; D69.6 Thrombocytopenia, unspecified; Z66 Do not resuscitate; K31.89 Other diseases of stomach and duodenum; D63.1 Anemia in chronic kidney disease; K74.60 Unspecified cirrhosis of liver; E03.9 Hypothyroidism, unspecified; N18.30 Chronic kidney disease, stage 3 unspecified; S41.102A Unspecified open wound of left upper arm, initial encounter; S41.101A Unspecified open wound of right upper arm, initial encounter; R53.81 Other malaise; S81.802A Unspecified open wound, left lower leg, initial encounter; S81.801A Unspecified open wound, right lower leg, initial encounter; K29.80 Duodenitis without bleeding; F32.A Depression, unspecified; Z96.643 Presence of artificial hip joint, bilateral; Z79.899 Other long term (current) drug therapy; Z79.890 Hormone replacement therapy; Z98.890 Other specified postprocedural states; Z87.891 Personal history of nicotine dependence
CPT/HCPCS: 36415; 36569; 49083; 74177; 76937; 77001; 80048; 80053; 80202; 82140; 82570; 83605; 83690; 83880; 84156; 84484; 85025; 85060; 85610; 85730; 86850; 86900; 86901; 87040; 87070; 87077; 87149; 87186; 87205; 89051; 93306; 96374; 96375; 97139; C9113; J0696; J1940; J2270; J2354; J2405; J2704; J3010; J3370; J3430; J3480; J3490; J7050; P9047; Q9967

== ENCOUNTER 2023-11-20 17:28 | Observation (INO) | payer MEDICARE ==
[~2023-11-20 17:28] MED LIST changes: -Iopamidol 370 76% 100 ML VIAL ONE; +Iopamidol-370 76% 500 ML MDV (1 ML CHARGE) ONE
[2023-11-20] MEDS ORDERED: Sodium Chloride 0.9% 100 ML ONE (18:40)
[2023-11-20] MEDS ORDERED: cefTRIAXone (ROCEPHIN) 2 GM VIAL ONE (18:40)
[2023-11-20 19:37] LABS: #Basophils 0.03 10x3/uL (0.0-0.2); %Basophils 0.6 % (0.0-1.0); %Eosinophils 3.3 % (0.0-10.0); %Lymphocytes 8.3 % (21.0-51.0); %Monocytes 10.5 % (0.0-10.0); %Neutrophils 76.1 % (42.0-75.0); Hematocrit 29.1 % (42.0-52.0); Hemoglobin 9.8 g/dL (14.0-18.0); Mean Corpuscular HGB CONC 33.7 g/dL (32.0-36.0); Mean Platelet Volume 10.2 fL (7.4-10.4); Platelet Count 67 10x3/uL (130-400); Red Blood Cell (RBC) Count 2.72 mill/uL (4.70-6.10)
[2023-11-20 19:53] LABS: ALT (SGPT) Less than 5 U/L (8-55); AST (SGOT) 18 U/L (5-34); Albumin 3.6 g/dL (3.4-4.8); Alkaline Phosphatase 58 U/L (40-110); Anion Gap 14 mmol/L (10-20); BUN (Urea Nitrogen) 38 mg/dL (8.4-25.7); Bilirubin, Total 2.7 mg/dL (0.2-1.2); Calc. Creatinine Clearance 0 mL/min (70-130); Carbon Dioxide 22 mmol/L (23-31); Chloride 100 mmol/L (98-107); Estimated GFR 67; Globulin 1.8 g/dL (2.4-3.5); Glucose 113 mg/dL (83-110); Potassium 3.9 mmol/L (3.5-5.1); Protein, Total 5.4 g/dL (5.8-8.1); Sodium 132 mmol/L (136-145)
[2023-11-20 19:56] LABS: Troponin I 0.029 ng/mL (< 0.028)
[2023-11-20 20:05] LABS: Bacteria/HPF None Seen HPF (None Seen); Bilirubin Negative (Negative); Blood, Urine Negative (Negative); CAUTI Indications for Culture < 2yrs of age; Clarity Clear (Clear); Glucose, Urine (Dipstick) Normal (Negative); Ketone, Urine Negative (Negative); Leukocyte Negative Leu/uL (Negative); Nitrite Negative (Negative); Protein, Urine (Dipstick) 50 mg/dL (Neg-Trace); Specific Gravity, Urine 1.017 (1.002-1.036); Squamous Epithelial 0-3 HPF (0-3); Urobilinogen Normal mg/dL (Less than 2); WBC/HPF 0-3 HPF (0-3); pH, Urine 5.5 (5.0-9.0)
[2023-11-20 20:26] LABS: Urine Culture Reflex Yes Yes
[2023-11-21 03:31] VITALS: BMI 19.2
[2023-11-21 08:07] VITALS: BP 100/59
[2023-11-21] MEDS ORDERED: Ondansetron PF 4 MG/2 ML Vial IVP PRN (08:14)
[2023-11-21] MEDS ORDERED: Bisacodyl 5 MG TAB PO PRN (08:14)
[2023-11-21] MEDS ORDERED: Ondansetron ODT 4 MG TAB PO PRN (08:14)
[2023-11-21] MEDS ORDERED: Acetaminophen 650 MG Suppository PR PRN (08:14)
[2023-11-21] MEDS ORDERED: Acetaminophen 325 MG TAB PO PRN ×2 (08:14→08:17)
[2023-11-21] MEDS ORDERED: Senokot S 8.6-50 MG TAB PO PRN (08:14)
[2023-11-21] MEDS ORDERED: Ipratropium/Albuterol 3 ML NEB NEB PRN (08:17)
[2023-11-21] MEDS ORDERED: cefTRIAXone (ROCEPHIN) 2 GM VIAL IVPB SCH (08:30)
[2023-11-21] MEDS: Folic Acid 1 MG TAB PO SCH (08:33)
[2023-11-21] MEDS: Lactulose 20 GM (30 mL) UDCUP PO SCH (08:33)
[2023-11-21] MEDS: Thiamine 100 MG TAB PO SCH (08:33)
[2023-11-21] MEDS: Ascorbic Acid 500 mg Chewable Tablet PO SCH (08:33)
[2023-11-21] MEDS: Midodrine HCl 5 MG TAB PO SCH (08:33)
[2023-11-21] MEDS: Furosemide 20 MG TAB PO SCH (08:33)
[2023-11-21] MEDS: Pantoprazole DR 40 MG TAB PO SCH (08:33)
[2023-11-21] MEDS: Multivitamin W/ Minerals 1 TAB PO SCH (08:36)
[2023-11-21] MEDS ORDERED: Lidocaine 1% PF 5 ML VIAL ONE (11:21)
[2023-11-21] MEDS ORDERED: Sodium Bicarbonate 2.5 MEQ/5 ML SDV ONE (11:21)
[2023-11-21] MEDS: cefTRIAXone\\ROCEPHIN 2 GM in Sodium Chloride 0.9% 100 ML IVPB SCH (15:46)
[2023-11-21 16:38] VITALS: TEMP 97.5
[2023-11-21] MEDS ORDERED: Spironolactone 25 MG TAB PO SCH (17:00)
[2023-11-21] MEDS ORDERED: cefTRIAXone\\ROCEPHIN 2 GM in Sodium Chloride 0.9% 100 ML IVPB SCH (18:00)
[2023-11-22] MEDS ORDERED: Levothyroxine Sodium 25 MCG TAB PO SCH (06:00)
[2023-11-22] MEDS ORDERED: cefTRIAXone\\ROCEPHIN 2 GM in Sodium Chloride 0.9% 100 ML IVPB SCH (16:00)
== END 2023-11-21 17:12 ==
LOC: ERS 17:28 → T4-A 11-21 02:04
PROVIDERS: ADMIT Student in an Organized Health Care Education/Training Program; ATTEND Student in an Organized Health Care Education/Training Program
PROC: 0W9G30Z Drainage of Peritoneal Cavity with Drainage Device, Percutaneous Approach (ICD-10-PCS; principal; 2023-11-20)
DX: I85.10 Secondary esophageal varices without bleeding (principal); K74.60 Unspecified cirrhosis of liver; R18.8 Other ascites; K76.82 Hepatic encephalopathy; D69.6 Thrombocytopenia, unspecified; E87.1 Hypo-osmolality and hyponatremia; E03.9 Hypothyroidism, unspecified; D63.1 Anemia in chronic kidney disease; I95.9 Hypotension, unspecified; N18.30 Chronic kidney disease, stage 3 unspecified; F32.A Depression, unspecified; A49.01 Methicillin susceptible Staphylococcus aureus infection, unspecified site; Z91.048 Other nonmedicinal substance allergy status; Z79.890 Hormone replacement therapy; Z79.899 Other long term (current) drug therapy
CPT/HCPCS: 49083; 70450; 74177; 80053; 81001; 82140; 83605; 84484; 85025; 87040; 87086; 96374; 96376; 99285; G0378 ×2; J0696 ×2; J3490 ×2; Q9967; 36415